=== PATIENT | male | born 1960 | race Caucasian/White ===

== ENCOUNTER 2019-07-11 19:31 | Inpatient (IN) | payer OTHER ==
[~2019-07-11] VITALS: Ht 182.9 cm; Wt 95.7 kg
[2019-07-11] MEDS ORDERED: LEVO100T4 PO (20:00)
[2019-07-11] MEDS ORDERED: LISI40TA4 PO (20:00)
[2019-07-11] MEDS ORDERED: GLIM1TAB18 PO (20:00)
[2019-07-11] MEDS ORDERED: APIX5TAB4 PO (20:00)
[2019-07-11] MEDS ORDERED: BUME0.5T5 PO (20:00)
[2019-07-11] MEDS ORDERED: SPIR25TA PO (20:00)
[2019-07-11] MEDS ORDERED: AMIO200T5 PO (20:00)
[2019-07-11] MEDS ORDERED: ATOR40TA28 PO (20:00)
[2019-07-11] MEDS ORDERED: DIGO0.12 PO (20:00)
[2019-07-11] MEDS ORDERED: CARV25TA77 PO (20:00)
[2019-07-11] MEDS ORDERED: APIX5TAB PO (20:04)
[2019-07-11] MEDS ORDERED: BUME1TAB34 PO (20:04)
[2019-07-11] MEDS ORDERED: DIGO125T84 PO (20:04)
[2019-07-11 20:17] LABS: GLUCOSE,POINT OF CARE 83 MG/DL (70-110)
[2019-07-11 20:20] LABS: BASOPHILS % (AUTO) 1.9 % (0.0-2.0); EOSINOPHILS % (AUTO) 1.8 % (1.0-6.0); HEMATOCRIT 34.8 % (41-53); HEMOGLOBIN 10.7 g/dL (13.5-17.5); LYMPHOCYTES # (AUTO) 0.9 K/uL (1.0-4.8); LYMPHOCYTES % (AUTO) 14.1 % (22.0-44.0); MEAN CORPUSCULAR HEMOGLOBIN 25.9 pg (26.0-34.0); MEAN CORPUSCULAR HGB CONC 30.7 G/dL (31.0-37.0); MEAN CORPUSCULAR VOLUME 85 fL (80-100); MONOCYTES # (AUTO) 0.6 K/uL (0.1-1.0); MONOCYTES % (AUTO) 10.6 % (2.0-9.0); NEUTROPHILS # (AUTO) 4.3 K/uL (1.8-7.7); NEUTROPHILS % (AUTO) 71.6 % (40.0-70.0); PLATELET COUNT (AUTO) 221 K/uL (150-450); RED BLOOD CELL COUNT(AUTO) 4.12 MIL/uL (4.50-5.90); RED CELL DISTRIBUTION WIDTH 20.1 % (11.5-14.5)
[2019-07-11 20:31] LABS: CREATININE 1.64 mg/dL (0.60-1.30); POTASSIUM 4.6 mmol/L (3.5-5.1)
[2019-07-11 20:32] LABS: INR 1.3 (0.9-1.1); PROTHROMBIN TIME 13.7 SEC (9.4-11.6)
[2019-07-11 20:41] LABS: ALBUMIN 3.5 g/dL (3.4-5.0); BILIRUBIN,TOTAL 1.6 mg/dL (0.1-1.0); TOTAL PROTEIN, SERUM 7.2 g/dL (6.4-8.2)
[2019-07-11] MEDS ORDERED: ACETAMINOPHEN 325 MG TABLET PO PRN ×2 (20:45→21:15)
[2019-07-11] MEDS ORDERED: BUMETANIDE 0.25 MG/ML 4 ML VIAL IVP ONE (20:45)
[2019-07-11] MEDS ORDERED: 0.9% SODIUM CHLORIDE 10 ML SYRINGE IVP PRN ×2 (20:45→21:15)
[2019-07-11] MEDS ORDERED: ONDANSETRON HCL 4 MG/2 ML VIAL IVP PRN ×2 (20:45→21:15)
[2019-07-11] MEDS ORDERED: DEXTROSE 50%-WATER 25 GM/50 ML SYRINGE IVP PRN (21:15)
[2019-07-11] MEDS ORDERED: MAGNESIUM OXIDE 400 MG TABLET PO PRN (21:15)
[2019-07-11] MEDS ORDERED: ALBUTEROL SULFATE 2.5 MG/0.5 ML NEB SOLUTION NEB PRN (21:15)
[2019-07-11] MEDS ORDERED: LISINOPRIL 5 MG TABLET PO ONE (21:15)
[2019-07-11] MEDS ORDERED: POTASSIUM CHL 10 MEQ/WATER 50 ML IV PRN (21:15)
[2019-07-11] MEDS ORDERED: MAGNESIUM SULFATE 4 GM/WATER 100 ML IV PRN (21:15)
[2019-07-11] MEDS ORDERED: POTASSIUM CHLORIDE 20 MEQ ER TABLET PO PRN (21:15)
[2019-07-11] MEDS ORDERED: ZOLPIDEM TARTRATE 5 MG TABLET PO PRN (21:15)
[2019-07-11] MEDS ORDERED: MAGNESIUM SULFATE 2 GM/WATER 50 ML IV PRN (21:15)
[2019-07-11] MEDS ORDERED: IPRATROPIUM BROMIDE 0.5 MG/2.5 ML NEB SOLUTION NEB PRN (21:15)
[2019-07-11 21:43] VITALS: BP 117/74
[2019-07-11 22:26] LABS: APPEARANCE,URINE CLEAR (CLEAR); BILIRUBIN,URINE NEGATIVE (NEGATIVE); GLUCOSE, URINE (UA) NEGATIVE (NEGATIVE); KETONES,URINE NEGATIVE (NEGATIVE); LEUKOCYTE ESTERASE ,URINE NEGATIVE (NEGATIVE); NITRATE,URINE NEGATIVE (NEGATIVE); OCCULT BLOOD,URINE NEGATIVE (NEGATIVE); PROTEIN,URINE TRACE (NEGATIVE)
[2019-07-11] MEDS: SPIRONOLACTONE 25 MG TABLET PO SCH (22:37)
[2019-07-11] MEDS: CARVEDILOL 25 MG TABLET PO SCH (22:38)
[2019-07-11] MEDS: AMIODARONE HCL 200 MG TABLET PO SCH (22:38)
[2019-07-11 23:16] VITALS: BP 113/80
[2019-07-12 00:36] LABS: GLUCOMETER DEV NAME(LOC) 5N.2; GLUCOSE,POINT OF CARE 93 MG/DL (70-110)
[2019-07-12] MEDS: BUMETANIDE 0.25 MG/ML 4 ML VIAL IVP SCH ×3 (01:35→21:01)
[2019-07-12] MEDS: IPRATROPIUM BROMIDE 0.5 MG/2.5 ML NEB SOLUTION NEB SCH ×4 (02:00→19:51)
[2019-07-12] MEDS: ALBUTEROL SULFATE 2.5 MG/0.5 ML NEB SOLUTION NEB SCH ×4 (02:00→19:51)
[2019-07-12 04:32] VITALS: BP 116/74
[2019-07-12] MEDS ORDERED: INFLUENZA VIRUS VACCINE QVS 2019-20 (3YR+)/PF 60 MCG/0.5 ML SYRINGE IM ONE (04:45)
[2019-07-12 06:21] LABS: GLUCOMETER DEV NAME(LOC) 5N.1; GLUCOSE,POINT OF CARE 128 MG/DL (70-110)
[2019-07-12 06:55] LABS: BASOPHILS % (AUTO) 1.2 % (0.0-2.0); EOSINOPHILS % (AUTO) 2.9 % (1.0-6.0); HEMATOCRIT 30.5 % (41-53); HEMOGLOBIN 9.7 g/dL (13.5-17.5); LYMPHOCYTES # (AUTO) 1.2 K/uL (1.0-4.8); LYMPHOCYTES % (AUTO) 19.1 % (22.0-44.0); MEAN CORPUSCULAR HEMOGLOBIN 26.7 pg (26.0-34.0); MEAN CORPUSCULAR HGB CONC 31.9 G/dL (31.0-37.0); MEAN CORPUSCULAR VOLUME 84 fL (80-100); MONOCYTES # (AUTO) 0.7 K/uL (0.1-1.0); MONOCYTES % (AUTO) 10.8 % (2.0-9.0); PLATELET COUNT (AUTO) 197 K/uL (150-450); RED BLOOD CELL COUNT(AUTO) 3.65 MIL/uL (4.50-5.90); RED CELL DISTRIBUTION WIDTH 19.6 % (11.5-14.5)
[2019-07-12 07:12] LABS: HEMOGLOBIN A1C 6.4 % (4.5-6.2)
[2019-07-12 07:16] LABS: CALCIUM, TOTAL 8.3 mg/dL (8.8-10.5); CREATININE 1.56 mg/dL (0.60-1.30); MAGNESIUM 2.3 mg/dL (1.80-2.40)
[2019-07-12 07:25] VITALS: BP 130/89
[2019-07-12] MEDS: AMIODARONE HCL 200 MG TABLET PO SCH ×2 (08:23→21:00)
[2019-07-12] MEDS: ATORVASTATIN CALCIUM 40 MG TABLET PO SCH (08:23)
[2019-07-12] MEDS: PANTOPRAZOLE SODIUM 40 MG DR TABLET PO SCH (08:24)
[2019-07-12] MEDS: SPIRONOLACTONE 25 MG TABLET PO SCH ×2 (08:24→21:00)
[2019-07-12] MEDS: CARVEDILOL 25 MG TABLET PO SCH ×2 (08:24→21:00)
[2019-07-12] MEDS ORDERED: APIXABAN 5 MG TABLET PO SCH (09:00)
[2019-07-12 11:12] VITALS: BP 133/84
[2019-07-12 15:36] VITALS: BP 108/54
[2019-07-12 20:36] VITALS: BP 117/69
[2019-07-12] MEDS: APIXABAN 2.5 MG TABLET PO SCH (21:00)
[2019-07-12] MEDS ORDERED: BUMETANIDE 0.25 MG/ML 4 ML VIAL IVP SCH (21:00)
[2019-07-12 23:17] VITALS: BP 142/72
[2019-07-13] MEDS: ALBUTEROL SULFATE 2.5 MG/0.5 ML NEB SOLUTION NEB SCH ×4 (01:48→20:07)
[2019-07-13] MEDS: IPRATROPIUM BROMIDE 0.5 MG/2.5 ML NEB SOLUTION NEB SCH ×4 (01:48→20:07)
[2019-07-13 05:41] VITALS: BP 118/73
[2019-07-13 05:46] LABS: GLUCOMETER DEV NAME(LOC) 5N.2; GLUCOSE,POINT OF CARE 110 MG/DL (70-110)
[2019-07-13 05:46] LABS: GLUCOMETER DEV NAME(LOC) 5N.2; GLUCOSE,POINT OF CARE 127 MG/DL (70-110)
[2019-07-13 05:47] LABS: GLUCOMETER DEV NAME(LOC) 5N.1; GLUCOSE,POINT OF CARE 100 MG/DL (70-110)
[2019-07-13 05:47] LABS: GLUCOMETER DEV NAME(LOC) 5N.1; GLUCOSE,POINT OF CARE 93 MG/DL (70-110)
[2019-07-13 06:44] LABS: BASOPHILS % (AUTO) 1.7 % (0.0-2.0); HEMATOCRIT 32.1 % (41-53); HEMOGLOBIN 10.1 g/dL (13.5-17.5); LYMPHOCYTES # (AUTO) 1.5 K/uL (1.0-4.8); LYMPHOCYTES % (AUTO) 21.2 % (22.0-44.0); MEAN CORPUSCULAR HEMOGLOBIN 26.5 pg (26.0-34.0); MEAN CORPUSCULAR HGB CONC 31.6 G/dL (31.0-37.0); MEAN CORPUSCULAR VOLUME 84 fL (80-100); MONOCYTES # (AUTO) 0.8 K/uL (0.1-1.0); MONOCYTES % (AUTO) 11.1 % (2.0-9.0); NEUTROPHILS # (AUTO) 4.5 K/uL (1.8-7.7); PLATELET COUNT (AUTO) 210 K/uL (150-450); RED BLOOD CELL COUNT(AUTO) 3.83 MIL/uL (4.50-5.90); RED CELL DISTRIBUTION WIDTH 20.3 % (11.5-14.5)
[2019-07-13 07:29] VITALS: BP 125/76
[2019-07-13] MEDS: PANTOPRAZOLE SODIUM 40 MG DR TABLET PO SCH (08:04)
[2019-07-13] MEDS: BUMETANIDE 0.25 MG/ML 4 ML VIAL IVP SCH ×2 (08:04→20:35)
[2019-07-13] MEDS: AMIODARONE HCL 200 MG TABLET PO SCH ×2 (08:04→20:34)
[2019-07-13] MEDS: CARVEDILOL 25 MG TABLET PO SCH ×2 (08:04→20:31)
[2019-07-13] MEDS: ATORVASTATIN CALCIUM 40 MG TABLET PO SCH (08:04)
[2019-07-13] MEDS: SPIRONOLACTONE 25 MG TABLET PO SCH ×2 (08:05→20:34)
[2019-07-13] MEDS: APIXABAN 2.5 MG TABLET PO SCH (08:05)
[2019-07-13 08:06] LABS: CALCIUM, TOTAL 8.5 mg/dL (8.8-10.5); CREATININE 1.67 mg/dL (0.60-1.30); POTASSIUM 4.4 mmol/L (3.5-5.1)
[2019-07-13 10:52] VITALS: BP 122/66
[2019-07-13 16:00] VITALS: BP 116/73
[2019-07-13 20:00] VITALS: BP 114/78
[2019-07-13] MEDS: APIXABAN 5 MG TABLET PO SCH (20:31)
[2019-07-13] MEDS: INSULIN LISPRO 100 UNITS/ML SQ PRN (21:32)
[2019-07-13 21:47] LABS: GLUCOMETER DEV NAME(LOC) 5N.1; GLUCOSE,POINT OF CARE 226 MG/DL (70-110)
[2019-07-13 21:47] LABS: GLUCOMETER DEV NAME(LOC) 5N.1; GLUCOSE,POINT OF CARE 125 MG/DL (70-110)
[2019-07-13] MEDS ORDERED: SODIUM CHLORIDE 0.9% 250 ML IV ONE (21:58)
[2019-07-14 00:01] VITALS: BP 118/74
[2019-07-14] MEDS: IPRATROPIUM BROMIDE 0.5 MG/2.5 ML NEB SOLUTION NEB SCH ×3 (02:00→14:44)
[2019-07-14] MEDS: ALBUTEROL SULFATE 2.5 MG/0.5 ML NEB SOLUTION NEB SCH ×3 (02:00→14:44)
[2019-07-14 05:09] LABS: GLUCOMETER DEV NAME(LOC) 5N.2; GLUCOSE,POINT OF CARE 113 MG/DL (70-110)
[2019-07-14 05:27] VITALS: BP 118/72
[2019-07-14 06:46] LABS: BASOPHILS % (AUTO) 1.5 % (0.0-2.0); EOSINOPHILS % (AUTO) 1.9 % (1.0-6.0); HEMATOCRIT 31.7 % (41-53); HEMOGLOBIN 10.1 g/dL (13.5-17.5); LYMPHOCYTES # (AUTO) 1.2 K/uL (1.0-4.8); LYMPHOCYTES % (AUTO) 15.4 % (22.0-44.0); MEAN CORPUSCULAR HEMOGLOBIN 26.3 pg (26.0-34.0); MEAN CORPUSCULAR HGB CONC 31.8 G/dL (31.0-37.0); MEAN CORPUSCULAR VOLUME 83 fL (80-100); MONOCYTES # (AUTO) 0.9 K/uL (0.1-1.0); NEUTROPHILS # (AUTO) 5.3 K/uL (1.8-7.7); NEUTROPHILS % (AUTO) 69.2 % (40.0-70.0); PLATELET COUNT (AUTO) 217 K/uL (150-450); RED BLOOD CELL COUNT(AUTO) 3.83 MIL/uL (4.50-5.90); RED CELL DISTRIBUTION WIDTH 20.1 % (11.5-14.5)
[2019-07-14 07:09] LABS: CALCIUM, TOTAL 8.4 mg/dL (8.8-10.5); CREATININE 1.67 mg/dL (0.60-1.30); POTASSIUM 3.8 mmol/L (3.5-5.1)
[2019-07-14 07:47] VITALS: BP 109/69
[2019-07-14] MEDS: PANTOPRAZOLE SODIUM 40 MG DR TABLET PO SCH (09:27)
[2019-07-14] MEDS: APIXABAN 5 MG TABLET PO SCH (09:27)
[2019-07-14] MEDS: AMIODARONE HCL 200 MG TABLET PO SCH (09:27)
[2019-07-14] MEDS: SPIRONOLACTONE 25 MG TABLET PO SCH (09:27)
[2019-07-14] MEDS: BUMETANIDE 0.25 MG/ML 4 ML VIAL IVP SCH (09:28)
[2019-07-14] MEDS: ATORVASTATIN CALCIUM 40 MG TABLET PO SCH (09:28)
[2019-07-14] MEDS: CARVEDILOL 25 MG TABLET PO SCH (09:28)
[2019-07-14] MEDS ORDERED: ALBU8HFA IH (10:16)
[2019-07-14] MEDS ORDERED: ATOR40TA28 PO (10:18)
[2019-07-14] MEDS ORDERED: AMIO200T44 PO (10:18)
[2019-07-14] MEDS: INSULIN LISPRO 100 UNITS/ML SQ PRN (12:01)
[2019-07-14 12:28] LABS: GLUCOMETER DEV NAME(LOC) 5S.1; GLUCOSE,POINT OF CARE 151 MG/DL (70-110)
[2019-07-14 23:41] LABS: GLUCOMETER DEV NAME(LOC) 5N.1; GLUCOSE,POINT OF CARE 103 MG/DL (70-110)
[2019-07-15 20:01] LABS: GLUCOMETER DEV NAME(LOC) 5S.1; GLUCOSE,POINT OF CARE 135 MG/DL (70-110)
== END 2019-07-14 19:48 | DRG 291 ==
LOC: EMS 19:37 → 5N 21:00
PROVIDERS: ADMIT Internal Medicine; ATTEND Internal Medicine
PROC: 3E02340 Introduction of Influenza Vaccine into Muscle, Percutaneous Approach (ICD-10-PCS; 2019-07-12)
PROC: 4B02XTZ Measurement of Cardiac Defibrillator, External Approach (ICD-10-PCS; principal; 2019-07-13)
DX: I13.0 Hypertensive heart and chronic kidney disease with heart failure and stage 1 through stage 4 chronic kidney disease, or unspecified chronic kidney disease (principal); I50.23 Acute on chronic systolic (congestive) heart failure; I48.20 Chronic atrial fibrillation, unspecified; J44.9 Chronic obstructive pulmonary disease, unspecified; I25.5 Ischemic cardiomyopathy; N18.9 Chronic kidney disease, unspecified; E78.5 Hyperlipidemia, unspecified; E03.9 Hypothyroidism, unspecified; E11.22 Type 2 diabetes mellitus with diabetic chronic kidney disease; F12.10 Cannabis abuse, uncomplicated; I25.10 Atherosclerotic heart disease of native coronary artery without angina pectoris; Z79.01 Long term (current) use of anticoagulants; Z87.891 Personal history of nicotine dependence; Z91.11 Patient's noncompliance with dietary regimen; Z95.5 Presence of coronary angioplasty implant and graft; Z95.810 Presence of automatic (implantable) cardiac defibrillator; Z23 Encounter for immunization
CPT/HCPCS: 83036; 83735; 90686; 93005; 93306; 94640; J3490; J7050

== ENCOUNTER 2019-07-23 01:57 | Inpatient (IN) | payer OTHER ==
[~2019-07-23] VITALS: Ht 188 cm; Wt 95.5 kg
[~2019-07-23 01:57] MED LIST: ALBU8HFA IH; AMIO200T44 PO; APIX5TAB PO; ATOR40TA28 PO; BUME1TAB34 PO; CARV25TA77 PO; GLIM1TAB18 PO; LEVO100T4 PO; SPIR25TA PO
[2019-07-23] MEDS ORDERED: RANI150T7 PO (02:55)
[2019-07-23] MEDS ORDERED: DIGO125T84 PO (02:55)
[2019-07-23] MEDS ORDERED: LISI-662 PO (02:55)
[2019-07-23] MEDS ORDERED: ONDANSETRON HCL 4 MG/2 ML VIAL IVP ONE (03:00)
[2019-07-23 04:04] LABS: EOSINOPHILS % (AUTO) 1.7 % (1.0-6.0); HEMOGLOBIN 11.3 g/dL (13.5-17.5); LYMPHOCYTES # (AUTO) 1.2 K/uL (1.0-4.8); LYMPHOCYTES % (AUTO) 14.6 % (22.0-44.0); MEAN CORPUSCULAR HEMOGLOBIN 25.7 pg (26.0-34.0); MEAN CORPUSCULAR HGB CONC 31.3 G/dL (31.0-37.0); MEAN CORPUSCULAR VOLUME 82 fL (80-100); MONOCYTES # (AUTO) 0.7 K/uL (0.1-1.0); MONOCYTES % (AUTO) 8.5 % (2.0-9.0); NEUTROPHILS # (AUTO) 5.9 K/uL (1.8-7.7); NEUTROPHILS % (AUTO) 74.2 % (40.0-70.0); RED BLOOD CELL COUNT(AUTO) 4.38 MIL/uL (4.50-5.90); RED CELL DISTRIBUTION WIDTH 20.6 % (11.5-14.5)
[2019-07-23 04:11] LABS: CREATININE 1.65 mg/dL (0.60-1.30); POTASSIUM 5.3 mmol/L (3.5-5.1)
[2019-07-23 04:12] LABS: CALCIUM, TOTAL 8.9 mg/dL (8.8-10.5)
[2019-07-23 04:21] LABS: PLATELET COUNT (AUTO) 186 K/uL (150-450); PLATELET MORPHOLOGY COMMENT LARGE PLTS PRESENT
[2019-07-23 04:36] LABS: ALBUMIN 3.6 g/dL (3.4-5.0); BILIRUBIN,TOTAL 1.4 mg/dL (0.1-1.0); TOTAL PROTEIN, SERUM 7.6 g/dL (6.4-8.2)
[2019-07-23] MEDS ORDERED: FUROSEMIDE 40 MG/4 ML VIAL IVP ONE (05:00)
[2019-07-23] MEDS ORDERED: ONDANSETRON HCL 4 MG/2 ML VIAL IVP PRN (05:45)
[2019-07-23] MEDS ORDERED: ACETAMINOPHEN 325 MG TABLET PO PRN ×2 (05:45→08:00)
[2019-07-23] MEDS ORDERED: 0.9% SODIUM CHLORIDE 10 ML SYRINGE IVP PRN (05:45)
[2019-07-23 07:40] LABS: GLUCOSE,POINT OF CARE 65 MG/DL (70-110)
[2019-07-23] MEDS ORDERED: POTASSIUM CHL 10 MEQ/WATER 50 ML IV PRN (08:00)
[2019-07-23] MEDS ORDERED: BISACODYL 10 MG RECTAL RECTAL SUPPOSITORY PR PRN (08:00)
[2019-07-23] MEDS ORDERED: POTASSIUM CHLORIDE 20 MEQ ER TABLET PO PRN (08:00)
[2019-07-23] MEDS: DOCUSATE SODIUM 100 MG CAPSULE PO SCH ×3 (09:00→21:04)
[2019-07-23 09:05] VITALS: BP 137/81
[2019-07-23] MEDS: CARVEDILOL 12.5 MG TABLET PO SCH ×2 (10:01→21:04)
[2019-07-23] MEDS: BUMETANIDE 0.25 MG/ML 4 ML VIAL IVP SCH ×2 (10:01→21:03)
[2019-07-23] MEDS: APIXABAN 2.5 MG TABLET PO SCH ×2 (10:01→21:04)
[2019-07-23] MEDS: LOSARTAN POTASSIUM 25 MG TABLET PO SCH ×2 (10:01→21:04)
[2019-07-23] MEDS: FAMOTIDINE 20 MG TABLET PO SCH (10:01)
[2019-07-23 11:52] VITALS: BP 132/66
[2019-07-23] MEDS ORDERED: DEXTROSE 50%-WATER 25 GM/50 ML SYRINGE IVP PRN (12:15)
[2019-07-23 12:30] LABS: GLUCOMETER DEV NAME(LOC) 5N.1; GLUCOSE,POINT OF CARE 123 MG/DL (70-110)
[2019-07-23 15:45] VITALS: BP 128/72
[2019-07-23 20:23] VITALS: BP 114/75
[2019-07-23 20:41] LABS: GLUCOMETER DEV NAME(LOC) 5S.2A; GLUCOSE,POINT OF CARE 168 MG/DL (70-110)
[2019-07-23] MEDS: INSULIN LISPRO 100 UNITS/ML SQ PRN (21:03)
[2019-07-23] MEDS: ATORVASTATIN CALCIUM 20 MG TABLET PO SCH (21:14)
[2019-07-24] VITALS (7 sets, daily range): BP systolic 99–126; BP diastolic 62–79
[2019-07-24 06:21] LABS: GLUCOMETER DEV NAME(LOC) 5N.1; GLUCOSE,POINT OF CARE 86 MG/DL (70-110)
[2019-07-24 07:27] LABS: GLUCOMETER DEV NAME(LOC) 5N.1; GLUCOSE,POINT OF CARE 74 MG/DL (70-110)
[2019-07-24] MEDS: LOSARTAN POTASSIUM 25 MG TABLET PO SCH ×2 (08:17→21:24)
[2019-07-24] MEDS: CARVEDILOL 12.5 MG TABLET PO SCH ×2 (08:17→21:24)
[2019-07-24] MEDS: DOCUSATE SODIUM 100 MG CAPSULE PO SCH ×2 (08:19→21:24)
[2019-07-24] MEDS: BUMETANIDE 0.25 MG/ML 4 ML VIAL IVP SCH ×2 (08:25→21:24)
[2019-07-24] MEDS: APIXABAN 2.5 MG TABLET PO SCH (08:26)
[2019-07-24] MEDS: FAMOTIDINE 20 MG TABLET PO SCH (08:26)
[2019-07-24] MEDS ORDERED: BUMETANIDE 0.25 MG/ML 10 ML VIAL IV SCH (09:00)
[2019-07-24 14:08] LABS: BASOPHILS % (AUTO) 1.5 % (0.0-2.0); EOSINOPHILS % (AUTO) 2.3 % (1.0-6.0); HEMATOCRIT 32.7 % (41-53); HEMOGLOBIN 10.3 g/dL (13.5-17.5); LYMPHOCYTES # (AUTO) 0.9 K/uL (1.0-4.8); LYMPHOCYTES % (AUTO) 14.8 % (22.0-44.0); MEAN CORPUSCULAR HGB CONC 31.5 G/dL (31.0-37.0); MEAN CORPUSCULAR VOLUME 83 fL (80-100); MONOCYTES # (AUTO) 0.7 K/uL (0.1-1.0); MONOCYTES % (AUTO) 10.8 % (2.0-9.0); NEUTROPHILS # (AUTO) 4.3 K/uL (1.8-7.7); NEUTROPHILS % (AUTO) 70.6 % (40.0-70.0); PLATELET COUNT (AUTO) 201 K/uL (150-450); RED BLOOD CELL COUNT(AUTO) 3.97 MIL/uL (4.50-5.90); RED CELL DISTRIBUTION WIDTH 20.3 % (11.5-14.5)
[2019-07-24 14:21] LABS: CALCIUM, TOTAL 8.3 mg/dL (8.8-10.5); CREATININE 1.68 mg/dL (0.60-1.30)
[2019-07-24] MEDS: INSULIN LISPRO 100 UNITS/ML SQ PRN ×2 (17:52→21:38)
[2019-07-24 20:12] LABS: GLUCOMETER DEV NAME(LOC) 5N.1; GLUCOSE,POINT OF CARE 157 MG/DL (70-110)
[2019-07-24 20:12] LABS: GLUCOMETER DEV NAME(LOC) 5N.1; GLUCOSE,POINT OF CARE 114 MG/DL (70-110)
[2019-07-24 20:13] LABS: GLUCOMETER DEV NAME(LOC) 5S.2A; GLUCOSE,POINT OF CARE 68 MG/DL (70-110)
[2019-07-24] MEDS: ATORVASTATIN CALCIUM 20 MG TABLET PO SCH (21:25)
[2019-07-24] MEDS: APIXABAN 5 MG TABLET PO SCH (21:25)
[2019-07-24 21:52] LABS: GLUCOMETER DEV NAME(LOC) 5S.2A; GLUCOSE,POINT OF CARE 150 MG/DL (70-110)
[2019-07-25] VITALS (7 sets, daily range): BP systolic 97–132; BP diastolic 64–81
[2019-07-25 06:33] LABS: BASOPHILS % (AUTO) 1.3 % (0.0-2.0); EOSINOPHILS % (AUTO) 2.2 % (1.0-6.0); HEMATOCRIT 30.4 % (41-53); HEMOGLOBIN 9.6 g/dL (13.5-17.5); LYMPHOCYTES # (AUTO) 1.2 K/uL (1.0-4.8); LYMPHOCYTES % (AUTO) 18.7 % (22.0-44.0); MEAN CORPUSCULAR HEMOGLOBIN 25.5 pg (26.0-34.0); MEAN CORPUSCULAR HGB CONC 31.4 G/dL (31.0-37.0); MEAN CORPUSCULAR VOLUME 81 fL (80-100); MONOCYTES # (AUTO) 0.6 K/uL (0.1-1.0); NEUTROPHILS # (AUTO) 4.3 K/uL (1.8-7.7); NEUTROPHILS % (AUTO) 67.8 % (40.0-70.0); PLATELET COUNT (AUTO) 191 K/uL (150-450); RED BLOOD CELL COUNT(AUTO) 3.75 MIL/uL (4.50-5.90); RED CELL DISTRIBUTION WIDTH 20.1 % (11.5-14.5)
[2019-07-25 06:52] LABS: CREATININE 2.05 mg/dL (0.60-1.30); POTASSIUM 3.8 mmol/L (3.5-5.1)
[2019-07-25] MEDS: DOCUSATE SODIUM 100 MG CAPSULE PO SCH ×2 (08:41→21:24)
[2019-07-25] MEDS: CARVEDILOL 12.5 MG TABLET PO SCH ×2 (08:42→21:24)
[2019-07-25] MEDS: FAMOTIDINE 20 MG TABLET PO SCH (08:42)
[2019-07-25] MEDS: APIXABAN 5 MG TABLET PO SCH ×2 (08:42→21:24)
[2019-07-25] MEDS ORDERED: BUMETANIDE 0.25 MG/ML 10 ML VIAL IV SCH (09:00)
[2019-07-25] MEDS: LOSARTAN POTASSIUM 25 MG TABLET PO SCH ×2 (09:00→21:24)
[2019-07-25 11:39] LABS: GLUCOMETER DEV NAME(LOC) 5N.1; GLUCOSE,POINT OF CARE 123 MG/DL (70-110)
[2019-07-25 21:15] LABS: GLUCOMETER DEV NAME(LOC) 5S.2A; GLUCOSE,POINT OF CARE 151 MG/DL (70-110)
[2019-07-25] MEDS: ATORVASTATIN CALCIUM 20 MG TABLET PO SCH (21:24)
[2019-07-26] VITALS: BP 116/76
[2019-07-26 04:00] VITALS: BP 116/72
[2019-07-26 06:25] VITALS: BP 151/75
[2019-07-26 07:02] LABS: GLUCOMETER DEV NAME(LOC) 5N.1; GLUCOSE,POINT OF CARE 111 MG/DL (70-110)
[2019-07-26 07:02] LABS: GLUCOMETER DEV NAME(LOC) 5N.1; GLUCOSE,POINT OF CARE 126 MG/DL (70-110)
[2019-07-26 07:03] LABS: GLUCOMETER DEV NAME(LOC) 5N.1; GLUCOSE,POINT OF CARE 99 MG/DL (70-110)
[2019-07-26 07:04] LABS: CALCIUM, TOTAL 8.6 mg/dL (8.8-10.5); CREATININE 1.76 mg/dL (0.60-1.30); POTASSIUM 3.9 mmol/L (3.5-5.1)
[2019-07-26 07:10] VITALS: BP 153/85
[2019-07-26] MEDS: FAMOTIDINE 20 MG TABLET PO SCH (08:54)
[2019-07-26] MEDS: DOCUSATE SODIUM 100 MG CAPSULE PO SCH (08:54)
[2019-07-26] MEDS: CARVEDILOL 12.5 MG TABLET PO SCH (08:54)
[2019-07-26] MEDS: LOSARTAN POTASSIUM 25 MG TABLET PO SCH (08:55)
[2019-07-26] MEDS: APIXABAN 5 MG TABLET PO SCH (08:55)
[2019-07-26] MEDS ORDERED: BUMETANIDE 1 MG TABLET PO SCH ×2 (09:00)
[2019-07-26] MEDS ORDERED: CARV12.580 PO (10:54)
[2019-07-26] MEDS ORDERED: APIX5TAB PO (10:55)
[2019-07-26] MEDS ORDERED: BUME1TAB7 PO (10:55)
[2019-07-26] MEDS ORDERED: ATOR20TA86 PO (10:56)
[2019-07-26] MEDS ORDERED: LOSA25TA2 PO (10:57)
[2019-07-26 16:22] VITALS: BP 101/61
[2019-07-26 17:26] LABS: GLUCOMETER DEV NAME(LOC) 5N.1; GLUCOSE,POINT OF CARE 126 MG/DL (70-110)
[2019-07-26 17:26] LABS: GLUCOMETER DEV NAME(LOC) 5N.1; GLUCOSE,POINT OF CARE 103 MG/DL (70-110)
== END 2019-07-26 18:10 | DRG 291 ==
LOC: EMS 01:57 → 5S 05:52
PROVIDERS: ADMIT Internal Medicine; ATTEND Internal Medicine
DX: I13.0 Hypertensive heart and chronic kidney disease with heart failure and stage 1 through stage 4 chronic kidney disease, or unspecified chronic kidney disease (principal); I50.23 Acute on chronic systolic (congestive) heart failure; N17.9 Acute kidney failure, unspecified; I48.20 Chronic atrial fibrillation, unspecified; N18.3 Chronic kidney disease, stage 3 (moderate); E66.9 Obesity, unspecified; Z79.01 Long term (current) use of anticoagulants; I25.5 Ischemic cardiomyopathy; Z88.0 Allergy status to penicillin; I48.91 Unspecified atrial fibrillation; J44.9 Chronic obstructive pulmonary disease, unspecified; I08.1 Rheumatic disorders of both mitral and tricuspid valves; I25.10 Atherosclerotic heart disease of native coronary artery without angina pectoris; Z95.5 Presence of coronary angioplasty implant and graft; E03.9 Hypothyroidism, unspecified; E78.5 Hyperlipidemia, unspecified; Z87.891 Personal history of nicotine dependence; E11.22 Type 2 diabetes mellitus with diabetic chronic kidney disease; Z91.19 Patient's noncompliance with other medical treatment and regimen; Z95.810 Presence of automatic (implantable) cardiac defibrillator; Z68.27 Body mass index [BMI] 27.0-27.9, adult
CPT/HCPCS: 87081; 93005; J1940; J2405; J3490